=== PATIENT | female | born 1940 | race Caucasian/White ===

== ENCOUNTER 2017-08-14 09:56 | Inpatient (IN) | payer MEDICARE, OTHER ==
[2017-08-14] VITALS (18 sets, daily range): BP systolic 101–177; BP diastolic 54–74; PULSE 60–108; RESP 17–23; Ht 165.1 cm; Wt 75.0 kg
[~2017-08-14] VITALS: Ht 165.1 cm; Wt 75.0 kg
[~2017-08-14 09:56] MED LIST: GEMF600T PO; LISI-313 PO; METF500T4 PO
[2017-08-14] MEDS ORDERED: MONT10TA21 PO (11:38)
[2017-08-14] MEDS ORDERED: LISI10TA2 PO (11:38)
[2017-08-14] MEDS ORDERED: SOD CHLORIDE 0.9% 500 ML IV STA (11:44)
--- NOTE | 2017-08-14 11:47 | ERD ---
ER Documentation Chief Complaint Date/Time DATE: 08/14/17 TIME: 11:45 Chief Complaint Complains of lower quadrant pain HPI Patient is a 77-year-old female who presents with gradual onset, constant, moderate right lower quadrant abdominal pain for 8 days. She states that the pain is gradually improved since onset but is still moderate to severe in intensity. She reports one episode of vomiting. She denies constipation or diarrhea. She reports feeling chills, but denies fever. She denies back pain, dysuria, hematuria. She reports history of left-sided abdominal hernia. ROS All systems reviewed and are negative except as per history of present illness. Medications Home Meds Reported Medications Montelukast Sodium* (Singulair*) 10 Mg Tablet, 10 MG PO QHS, #30 TAB 08/14/17 Lisinopril* (Lisinopril*) 10 Mg Tablet, 10 MG PO DAILY, #30 TAB 08/14/17 Gemfibrozil* (Lopid*) 600 Mg Tablet, 600 MG PO bid 09/27/13 Metformin* (Glucophage*) 500 Mg Tab, 500 MG PO daily 09/27/13 Discontinued Reported Medications Lisinopril* (Lisinopril*) 5 Mg Tablet, 5 MG PO daily 09/27/13 Allergies Allergies: Coded Allergies: No Known Allergy (Unverified , 08/14/17) PMhx/Soc Past medical history: Diabetes mellitus, hernia Past surgical history: Cholecystectomy, hernia repair Social history: Denies tobacco, alcohol or illicit drugs History of Surgery: No Anesthesia Reaction: No Hx Neurological Disorder: No Hx Respiratory Disorders: No Hx Cardiac Disorders: No Hx Psychiatric Problems: No Hx Miscellaneous Medical Probl: No Hx Alcohol Use: No Hx Substance Use: No Hx Tobacco Use: No Smoking Status: Never smoker FmHx Noncontributory Physical Exam Vitals Vital Signs Date Time Temp Pulse Resp B/P Pulse Ox O2 Delivery O2 Flow Rate FiO2 08/14/17 16:11 68 20 111/63 99 Room Air 08/14/17 10:03 98.7 90 20 140/70 96 Physical Exam Const: Alert, appears mildly uncomfortable Head: Atraumatic Eyes: Normal Conjunctiva, No pallor, no icterus ENT: Normal External Ears, Nose and Mouth. Mucous membranes moist Neck: Full range of motion..~ No meningismus. Resp: Clear to auscultation bilaterally, No wheezes, no rales Cardio: Regular rate and rhythm, no murmurs Abd: Soft, Nondistended. Right lower quadrant tenderness with mild voluntary guarding, no rebound Skin: No petechiae or rashes Back: No midline or flank tenderness Ext: No cyanosis, or edema Neur: Awake and alert Psych: Normal Mood and Affect Result Diagram: 08/14/17 1145 08/14/17 1145 Results 24 hrs Laboratory Tests Test 08/14/17 11:45 White Blood Count 7.910^3/ul Red Blood Count 3.4410^6/ul Hemoglobin 11.5g/dl Hematocrit 33.6% Mean Corpuscular Volume 97.7fl Mean Corpuscular Hemoglobin 33.4pg Mean Corpuscular Hemoglobin Concent 34.2g/dl Red Cell Distribution Width 12.3% Platelet Count 29862^3/UL Mean Platelet Volume 10.5fl Neutrophils % 74.8% Lymphocytes % 14.3% Monocytes % 7.1% Eosinophils % 3.1% Basophils % 0.3% Nucleated Red Blood Cells % 0.0/100WBC Neutrophils # 5.910^3/ul Lymphocytes # 1.110^3/ul Monocytes # 0.610^3/ul Eosinophils # 0.210^3/ul Basophils # 0.010^3/ul Nucleated Red Blood Cells # 0.010^3/ul Prothrombin Time 14.8Sec Prothrombin Time Ratio 1.2 INR International Normalized Ratio 1.16 Urine Color YELLOW Urine Clarity SLIGHTLY CLOUDY Urine pH 5.0 Urine Specific [place] 1.021 Urine Ketones NEGATIVEmg/dL Urine Nitrite NEGATIVEmg/dL Urine Bilirubin NEGATIVEmg/dL Urine Urobilinogen NEGATIVEmg/dL Urine Leukocyte Esterase TRACELeu/ul Urine Microscopic RBC 0/HPF Urine Microscopic WBC 3/HPF Urine Hemoglobin NEGATIVEmg/dL Urine Glucose NEGATIVEmg/dL Urine Total Protein NEGATIVEmg/dl Sodium Level 140mmol/L Potassium Level 4.6mmol/L Chloride Level 107mmol/L Carbon Dioxide Level 24mmol/L Anion Gap 14 Blood Urea Nitrogen 28mg/dl Creatinine 0.87mg/dl Glucose Level 144mg/dl Calcium Level 9.6mg/dl Total Bilirubin 0.1mg/dl Direct Bilirubin 0.00mg/dl Indirect Bilirubin 0.1mg/dl Aspartate Amino Transf (AST/SGOT) 20IU/L Alanine Aminotransferase (ALT/SGPT) 29IU/L Alkaline Phosphatase 93IU/L Total Protein 8.2g/dl Albumin 4.2g/dl Globulin 4.00g/dl Albumin/Globulin Ratio 1.05 Lipase 130U/L Current Medications Medications (Trade) Dose Ordered Sig/Moira Route PRN Reason Start Time Stop Time Status Last Admin Dose Admin Sodium Chloride (NS) 500 ml @ 500 mls/hr Q1H STAT IV 08/14/17 11:44 08/14/17 12:43 DC 08/14/17 12:17 Morphine Sulfate (morphine) 2 mg ONCE STAT IV 08/14/17 11:44 08/14/17 11:46 DC Ondansetron HCl (Zofran Inj) 4 mg ONCE STAT IV 08/14/17 11:44 08/14/17 11:46 DC IV Flush 10 ml 10 ml STK-MED ONCE .ROUTE 08/14/17 12:35 08/14/17 12:36 DC Sodium Chloride (NS) 100 ml @ ud STK-MED ONCE .ROUTE 08/14/17 12:35 08/14/17 12:36 DC Iohexol 150 ml 150 ml STK-MED ONCE .ROUTE 08/14/17 12:35 08/14/17 12:36 DC Piperacillin Sod/ Tazobactam Sod 100 ml @ 200 mls/hr ONCE ONCE IVPB 08/14/17 13:30 08/14/17 13:59 DC 08/14/17 13:29 Sodium Chloride (NS) 500 ml @ 500 mls/hr Q1H ONCE IV 08/14/17 15:00 08/14/17 15:59 DC Ondansetron HCl (Zofran Inj) 4 mg BRIDGE ORDER PRN IV NAUSEA AND/OR VOMITING 08/14/17 15:30 08/15/17 15:29 Acetaminophen 650 mg 650 mg ER BRIDGE PRN PO MILD PAIN/FEVER 08/14/17 15:30 08/15/17 15:29 Dextrose/Sodium Chloride (D5-1/2ns) 1,000 ml @ 75 mls/hr [id number] IV 08/14/17 16:15 IV Flush (NS 3 ml) 3 ml PER PROTOCOL IV 08/14/17 16:30 Ondansetron HCl (Zofran Inj) 4 mg Q6H PRN IV NAUSEA AND/OR VOMITING 08/14/17 16:30 Hydromorphone HCl 0.5 mg 0.5 mg Q4H PRN IV SEVERE PAIN LEVEL 7-10 08/14/17 16:30 Ampicillin Sodium/ Sulbactam Sodium (Unasyn 3gm/NS (Pmx)) 100 ml @ 100 mls/hr Q6 IVPB 08/14/17 18:00 Procedures/MDM MDM: Patient is a 77-year-old female who presents with 8 days of right lower quadrant pain. She had tenderness with guarding on exam, so a CT scan was performed and shows evidence of acute appendicitis. There is no evidence of perforation or abscess. Patient has no leukocytosis or fever, and labs are otherwise unremarkable. The patient was made n.p.o., given IV fluids and antibiotics. Case was discussed with the surgeon on-call, and will be admitted to the hospitalist for further care. Departure Diagnosis: Primary Impression: Appendicitis Appendicitis type: acute appendicitis Acute appendicitis type: unspecified acute appendicitis type Qualified Code: K35.80 - Acute appendicitis, unspecified acute appendicitis type Condition: Stable CECILIA GAGNON MD Aug 14, 2017 11:47
[2017-08-14 12:11] LABS: BASOPHILS % 0.3 % (0.0-2.0); EOSINOPHILS # 0.2 10^3/ul (0.0-0.5); EOSINOPHILS % 3.1 % (0.0-7.0); HEMATOCRIT 33.6 % (37.0-47.0); HEMOGLOBIN 11.5 g/dl (12.0-16.0); LYMPHOCYTES # 1.1 10^3/ul (0.8-2.9); LYMPHOCYTES % 14.3 % (15.0-51.0); MEAN CORPUSCULAR HEMOGLOBIN 33.4 pg (29.0-33.0); MEAN CORPUSCULAR HGB CONC 34.2 g/dl (32.0-37.0); MEAN CORPUSCULAR VOLUME 97.7 fl (82.0-101.0); MEAN PLATELET VOLUME 10.5 fl (7.4-10.4); MONOCYTE # 0.6 10^3/ul (0.3-0.9); MONOCYTES % 7.1 % (0.0-11.0); NEUTROPHIL # 5.9 10^3/ul (1.6-7.5); NEUTROPHILS % 74.8 % (39.0-77.0); PLATELET COUNT 205 10^3/UL (140-415); RED BLOOD COUNT 3.44 10^6/ul (4.20-5.40); RED CELL DISTRIBUTION WIDTH 12.3 % (11.5-14.5); WHITE BLOOD COUNT 7.9 10^3/ul (4.8-10.8)
[2017-08-14 12:15] LABS: ADD UMIC YES; UR ASCORBIC ACID NEGATIVE (NEGATIVE); UR BILIRUBIN (Dip) NEGATIVE (NEGATIVE); UR BLOOD (Dip) NEGATIVE (NEGATIVE); UR CLARITY SLIGHTLY CLOUDY (CLEAR); UR COLOR YELLOW (YELLOW); UR GLUCOSE (Dip) NEGATIVE (NEGATIVE); UR KETONES (Dip) NEGATIVE (NEGATIVE); UR LEUKOCYTE ESTERASE (Dip) TRACE Leu/ul (NEGATIVE); UR NITRITE (Dip) NEGATIVE (NEGATIVE); UR RBC 0 /HPF (0-5); UR SPECIFIC GRAVITY (Dip) 1.021 (1.003-1.030); UR TOTAL PROTEIN (Dip) NEGATIVE (NEGATIVE); UR UROBILINOGEN (Dip) NEGATIVE (NEGATIVE)
[2017-08-14] MEDS: ONDANSETRON 4 MG INJ IV STA ×2 (12:16→12:21)
[2017-08-14] MEDS: morphine 2 MG INJ IV STA ×2 (12:16→12:20)
[2017-08-14 12:26] LABS: INR 1.16; PROTIME 14.8 Sec (12.2-14.2); PT RATIO 1.2
[2017-08-14 12:28] LABS: ALBUMIN 4.2 g/dl (3.3-4.9); ALBUMIN/GLOBULIN RATIO 1.05; BILIRUBIN,INDIRECT 0.1 mg/dl (0-1.1); BILIRUBIN,TOTAL 0.1 mg/dl (0.2-1.3); CALCIUM 9.6 mg/dl (8.4-10.2); CREATININE 0.87 mg/dl (0.44-1.00); POTASSIUM 4.6 mmol/L (3.5-5.1); TOTAL PROTEIN 8.2 g/dl (6.1-8.1)
[2017-08-14] MEDS ORDERED: IOHEXOL 300MG/ML 150 ML BTL ONE (12:35)
[2017-08-14] MEDS ORDERED: SOD CHLORIDE 0.9% 100 ML ONE (12:35)
--- NOTE | 2017-08-14 13:09 | RADRPT ---
PROCEDURE: CT Abdomen and Pelvis with contrast. CLINICAL INDICATION: Abdominal pain. TECHNIQUE: CT scan of the abdomen and pelvis with and without contrast was performed on a multidet jude high-resolution CT scanner. The patient was scanned following the uncomplicated intravenous a dministration of 100 cc of Omnipaque 300. Coronal and sagittal reformatted images were obtained fro m the axial source images. Images were reviewed on a high-resolution PACS workstation. The followin g dose reduction techniques were used: Automated exposure control, adjustment of the mA and/or kV ac cording to patient size and use of iterative reconstruction technique. The total exam CTDI equals 19 .9 mGy and the total exam DLP equals 1134 mGy-cm. COMPARISON: None. FINDINGS: CT abdomen: The lung bases are clear. The heart size is normal. No pericardial effusion identified. The liver demonstrates normal size and density. No liver mass identified. The gallbladder surgically absent. There is no intrahepatic or extrahepatic biliary dilatation. The spleen is normal in size. No focal splenic abnormality identified. No gross abnormality of the stomach is identified. The pancreas is unremarkable. The adrenal glands appear normal. Moderate hydronephrosis of the left kidney. Mild hydronephrosis of the right kidney. No evidence of hydroureter or renal calculi. The kidneys are unremarkable. There is no evidence of renal mass, renal calculi or hydronephrosis. The aorta is of normal caliber. Aortic vascular calcifications are present. No adenopathy identified. The appendix is dilated, measuring 11 mm. There is inflammatory change around the course the appendix, suggest appendicitis. Mild diverticulos is is seen in the ascending transverse and descending colon. There is a small, wide neck ventral hernia vision 2.[address] pelvis: The pelvic organs are normal. The pelvic sidewalls and inguinal regions are clear. The sigmoid colon and rectum are remarkable for moderate sigmoid diverticulosis. No adenopathy, free fluid or inflammatory change identified. The osseous structures are remarkable for degenerative spondylosis of the spine. No osteolytic or osteoblastic lesion is detected. IMPRESSION: 1. Appendiceal dilation with periappendiceal inflammatory change. Findings are consistent with appe ndicitis. No CT evidence of abscess or perforation. 2. Mild right and moderate left hydronephrosis without ureteric calculi or hydroureter findings may indicate UPJ stenosis. 3. Small, wide neck midline ventral hernia measuring 2.7 cm containing a loop of small bowel withou t evidence of bowel obstruction. 4. Moderate diverticulosis of sigmoid colon, without inflammatory change to suggest diverticulitis. Findings discussed with Dr. Vee on 08/14/2017 at 1305 hours. RPTAT: QQ .Dre Fairchild MD, Date Time Electronically viewed and signed by .Dre Fairchild MD, on 08/14/2017 13:09 .M/
[2017-08-14] MEDS ORDERED: PIPER-TAZO 3.375 GM IV (PMX) 100 ML IVPB ONE (13:30)
[2017-08-14] MEDS ORDERED: SOD CHLORIDE 0.9% 500 ML IV ONE (15:00)
[2017-08-14] MEDS ORDERED: ONDANSETRON 4 MG INJ IV PRN ×4 (15:30→21:00)
[2017-08-14] MEDS ORDERED: ACETAMINOPHEN 325 MG TAB PO PRN (15:30)
--- NOTE | 2017-08-14 15:51 | CONS ---
Date/Time of Note Date/Time of Note DATE: 08/14/17 TIME: 15:39 Assessment/Plan Assessment/Plan Chief Complaint/Hosp Course 1. Appendicitis without appendicolith per radiologist -patient opting for surgery- r/b/a of lap appendectomy reviewed with patient and family -abx -npo -pain management 2. Abdominal pain -RLQ -as above, pain management 3. Ventral hernia; no pain -eventual hernia repair -weight loss -close monitoring 4. Diverticulosis without diverticulitis -medical management and outpatient followup 5. Anemia: no acute bleed noted -monitor and transfuse as needed Thank you. Patient seen and examined in collaboration with Dr. Micha Foster. Problems: Consultation Date/Type/Reason Admit Date/Time Date of Consultation: Aug 14, 2017 Reason for Consultation appendicitis Referring Provider: CECILIA GAGNON MD Hx of Present Illness Brittani Portillo is a 77 yo woman who presents to the ED with an 8 day history of abdominal pain centralized in the right lower quadrant. Pain is described as squeezing and strong, nonradiating. Associated symptoms includes chills but no fevers. No noted interventions attempted. She has significant history of constipation. She denies nausea, vomiting, cp, palpitations, dysuria or hematuria. CT abdomen shows appendiceal dilation with periappendiceal inflammatory change. General surgery was asked to evaluate. Constitutional: chills, No diaphoresis, No febrile Eyes: No visual change ENT: No congestion, No pain Respiratory: No cough, No shortness of breath Cardiovascular: No edema, No lightheadedness Gastrointestinal: constipation Genitourinary: No dysuria, No hematuria Musculoskeletal: No bone/joint pain Skin: No bruising, No erythema, No rash Neurologic: No headache Psychological: No anxiety Past Medical History hypertension diabetes (controlled) asthma Past Surgical History umbilical hernia repair cholecystecomy Family History Significant Family History: no pertinent family hx Social History Alcohol Use: none Smoking Status: Never smoker Drug Use: none Exam/Review of Systems Vital Signs Vitals Vital Signs Date Time Temp Pulse Resp B/P Pulse Ox O2 Delivery O2 Flow Rate FiO2 08/14/17 10:03 98.7 90 20 140/70 96 Exam Constitutional: alert, oriented, well developed Psych: nl mood/affect Head: atraumatic, normocephalic Eyes: nl lids, nl sclera ENMT: mucosa pink and moist, nl nasal mucosa & septum Neck: non-tender, supple Respiratory: normal air movement Cardiovascular: nl pulses, regular rate and rhythm Gastrointestinal: distended (mod), rebound or guarding, surgical scars, tender (rlq) Musculoskeletal: nl gait and stance Extremities: normal pulses Neurological: nl mental status, nl speech, nl strength Skin: No rash or lesions Results Result Diagram: 08/14/17 1145 08/14/17 1145 Results 24 hrs Laboratory Tests Test 08/14/17 11:45 White Blood Count 7.9 Red Blood Count 3.44 L Hemoglobin 11.5 L Hematocrit 33.6 L Mean Corpuscular Volume 97.7 Mean Corpuscular Hemoglobin 33.4 H Mean Corpuscular Hemoglobin Concent 34.2 Red Cell Distribution Width 12.3 Platelet Count 205 Mean Platelet Volume 10.5 H Neutrophils % 74.8 Lymphocytes % 14.3 L Monocytes % 7.1 Eosinophils % 3.1 Basophils % 0.3 Nucleated Red Blood Cells % 0.0 Neutrophils # 5.9 Lymphocytes # 1.1 Monocytes # 0.6 Eosinophils # 0.2 Basophils # 0.0 Nucleated Red Blood Cells # 0.0 Prothrombin Time 14.8 H Prothrombin Time Ratio 1.2 INR International Normalized Ratio 1.16 Urine Color YELLOW Urine Clarity SLIGHTLY CLOUDY A Urine pH 5.0 Urine Specific [place] 1.021 Urine Ketones NEGATIVE Urine Nitrite NEGATIVE Urine Bilirubin NEGATIVE Urine Urobilinogen NEGATIVE Urine Leukocyte Esterase TRACE A Urine Microscopic RBC 0 Urine Microscopic WBC 3 Urine Hemoglobin NEGATIVE Urine Glucose NEGATIVE Urine Total Protein NEGATIVE Sodium Level 140 Potassium Level 4.6 Chloride Level 107 Carbon Dioxide Level 24 Anion Gap 14 Blood Urea Nitrogen 28 H Creatinine 0.87 Glucose Level 144 Calcium Level 9.6 Total Bilirubin 0.1 L Direct Bilirubin 0.00 Indirect Bilirubin 0.1 Aspartate Amino Transf (AST/SGOT) 20 Alanine Aminotransferase (ALT/SGPT) 29 Alkaline Phosphatase 93 Total Protein 8.2 H Albumin 4.2 Globulin 4.00 H Albumin/Globulin Ratio 1.05 Lipase 130 Medications Medications Current Medications Sodium Chloride (NS) 500 ml @ 500 mls/hr Q1H ONCE IV ; Start 08/14/17 at 15:00 ; Stop 08/14/17 at 15:59 RUBIA ROQUE NP Aug 14, 2017 15:51
[2017-08-14] MEDS ORDERED: NACL 0.9% 3 ML SYG IV SCH (16:30)
--- NOTE | 2017-08-14 17:27 | HP ---
Date/Time of Note Date/Time of Note DATE: 08/14/17 TIME: 17:23 Assessment/Plan VTE Prophylaxis VTE Prophylaxis Intervention: SCD's Assessment/Plan Chief Complaint/Hosp Course 77 yo female with no significant PMH who presents with appendicitis - Plan for OR per Dr Foster - Will keep on Unasyn until OR - IVF maintenance - SCDs - Patient is medically cleared for OR Problems: HPI/ROS Admit Date/Time Admit Date/Time Hx of Present Illness 77 yo female withotu significant PMH who presents with 8 days of crampy abdominal pain Still taking PO, normal BM habits. No systemic fevers, etc. In ED, found to have appendicitis. Abx started. Seen by surgery, planning to go to OR. Currently comfortable ROS Eyes: No visual change ENT: No congestion, No pain Respiratory: No cough, No shortness of breath Cardiovascular: No edema, No lightheadedness Gastrointestinal: constipation Genitourinary: No dysuria, No hematuria Musculoskeletal: No bone/joint pain Skin: No bruising, No erythema, No rash Neurologic: No headache Psychological: nl mood/affect PMH/Family/Social Past Medical History Medical History: no pertinent history Family History Significant Family History: no pertinent family hx Social History Alcohol Use: none Smoking Status: Never smoker Drug Use: none Exam/Review of Systems Vital Signs Vitals Vital Signs Date Time Temp Pulse Resp B/P Pulse Ox O2 Delivery O2 Flow Rate FiO2 08/14/17 16:11 68 20 111/63 99 Room Air 08/14/17 10:03 98.7 Exam Exam Abdomen soft, mildly tender to palpation in RLQ with mild rebound Nontoxic apperance, comfortable, pleasant Constitutional: alert, oriented, well developed Psych: nl mood/affect, no complaints Head: atraumatic, normocephalic Eyes: EOMI, PERRL, nl conjunctiva, nl lids, nl sclera ENMT: nl external ears & nose, nl lips & teeth, nl nasal mucosa & septum Neck: non-tender, supple Respiratory: clear to auscultation, normal air movement Cardiovascular: nl pulses, regular rate and rhythm Gastrointestinal: nl liver, spleen, non-tender, soft Musculoskeletal: nl extremities to inspection Extremities: normal pulses Neurological: DISTRIBUTION ASSOCIATE II-XII intact, nl mental status, nl speech, nl strength Skin: nl turgor, No rash or lesions Lymph: nl lymph nodes Labs Result Diagram: 08/14/17 1145 08/14/17 1145 Medications Medications Current Medications Dextrose/Sodium Chloride (D5-1/2ns) 1,000 ml @ 75 mls/hr [id number] IV ; Start at 16:15 Ondansetron HCl (Zofran Inj) 4 mg Q6H PRN IV NAUSEA AND/OR VOMITING; Start 08/14/17 at 16:30 Hydromorphone HCl 0.5 mg 0.5 mg Q4H PRN IV SEVERE PAIN LEVEL 7-10; Start at 16:30 Ampicillin Sodium/ Sulbactam Sodium (Unasyn 3gm/NS (Pmx)) 100 ml @ 100 mls/hr Q6 IVPB ; Start 08/14/17 at 18:00 CECILIA GALEAS MD Aug 14, 2017 17:27
[2017-08-14] MEDS ORDERED: FENTAnyl 50 MCG/ML VIAL ONE (18:53)
[2017-08-14] MEDS ORDERED: SUCCINYLCHOLINE CHLORIDE 100 MG/5 ML SYG IV ONE (18:53)
[2017-08-14] MEDS ORDERED: PROPOFOL 20 ML ONE (18:53)
[2017-08-14] MEDS ORDERED: LIDOCAINE 2% (SDV) 5 ML INJ ONE (18:53)
[2017-08-14] MEDS ORDERED: EPHEDrine SULFATE 50 MG/5 ML SYG IV PRN (19:00)
[2017-08-14] MEDS ORDERED: LEVALBUTEROL (NEB) 1.25 MG/0.5 ML AMP HHN PRN (19:00)
[2017-08-14] MEDS ORDERED: HYDROmorphONE (0.2 MG/ML) 10ML SYG IV PRN (19:00)
[2017-08-14] MEDS ORDERED: DIPHENHYDRAMINE 50 MG INJ IV PRN (19:00)
[2017-08-14] MEDS ORDERED: hydrALAzine 20 MG INJ IV PRN (19:00)
[2017-08-14] MEDS ORDERED: FENTAnyl 50 MCG/ML VIAL IV PRN (19:00)
[2017-08-14] MEDS ORDERED: PROCHLORPERAZINE 10 MG INJ IV PRN (19:00)
[2017-08-14] MEDS ORDERED: MEPERIDINE 25 MG INJ IV PRN (19:00)
[2017-08-14] MEDS ORDERED: LIDOCAINE 1% (MPF) 30 ML INJ ONE (19:18)
[2017-08-14] MEDS ORDERED: BUPIVACAINE 0.25% (MPF) 30 ML INJ ONE (19:19)
--- NOTE | 2017-08-14 19:43 | RADRPT ---
PROCEDURE: XR Chest. CLINICAL INDICATION: Preop TECHNIQUE: Anterior chest x-ray. COMPARISON: 03/25/2014 FINDINGS: Exam is limited due to lordotic positioning. Lung bases are not clearly visualized. No significant a bnormality identified on lung bases on the CT scan performed earlier the same day. The upper lung zones are clear. No pleural effusion identified. There is no evidence of pneumothorax. Is atherosclerotic calcification of the aorta. The cardiomediastinal silhouette is unremarkable. The soft tissues are normal. Osseous structures are unremarkable. IMPRESSION: 1. No acute disease is seen in the chest, with limitation due to lordotic positioning. RPTAT: QQ .Dre Fairchild MD, Date Time Electronically viewed and signed by .Dre Fairchild MD, on 08/14/2017 19:42 .M/
[2017-08-14] MEDS: AMPICILLIN/SULB 3 GM/NS (PMX) 100 ML IVPB SCH (19:53)
[2017-08-14] MEDS ORDERED: ONDANSETRON 4 MG INJ ONE (20:00)
[2017-08-14] MEDS ORDERED: ROCURONIUM 50 MG INJ ONE (20:00)
[2017-08-14] MEDS ORDERED: CEFAZOLIN 1 GM INJ ONE (20:00)
[2017-08-14] MEDS ORDERED: METOCLOPRAMIDE 10 MG INJ ONE (20:00)
[2017-08-14] MEDS ORDERED: EPHEDrine SULFATE 50 MG/5 ML SYG ONE (20:01)
[2017-08-14] MEDS ORDERED: BUPIVACAINE 0.5%/EPI (SDV) 30 ML INJ ONE (20:14)
[2017-08-14] MEDS ORDERED: SUGAMMADEX SODIUM 200 MG/2 ML VIAL IV ONE (20:23)
[2017-08-14] MEDS ORDERED: ACETAMINOPHEN 1000MG/100ML IV 100 ML ONE (20:45)
--- NOTE | 2017-08-14 21:07 | OPR ---
Date/Time of Note Date/Time of Note DATE: 08/14/17 TIME: 21:01 Operative Report Procedure Date: Aug 14, 2017 Preoperative Diagnosis . Postoperative Diagnosis . Operation/Procedure Performed . 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 Anesthesia Type: other (.) Estimated Blood Loss: 10 - 50 ml's Transfusion none Specimen . Grafts/Implants none Complications none Procedure Description Preoperative Diagnosis 1. Acute appendicitis 2. Central obesity Postoperative Diagnosis 1. Acute appendicitis 2. Central obesity 3. Multiple lower ventral incisional hernias Operation Performed 1. Laparoscopic appendectomy 2. [place] anesthetic [place], [id number] 3. Laparoscopic guided bilateral transversus abdominis plane block Surgeon: DINH LEWIS MD Anesthesia: general (Plus local plus regional) Anesthesiologist: Santiago HINES Estimated Blood Loss: 15 ml's Specimens: Appendix Tubes/Drains None Complications: None Pt Condition Post Procedure: stable Disposition: PACU Indications: Per consult note. Risks include but are not limited to bleeding, infection, abscess, seroma, leak , damage to intestines or any intra-abdominal/intrapelvic structures, hernia formation, chronic pain, need for re-operations or further surgeries, AK, stroke , PE, DVT, pneumonia, organ failures, or even . Procedure Note: Patient was brought into the operating room, placed supine on the operating table, SCDs were placed, left arm was tucked, all pressure points were well- padded, preoperative antibiotics administered, and after induction of anesthesia , she was prepped and draped in usual sterile fashion, and timeout was performed. Incision was made in the right upper quadrant and using 5 mm 0 scope and a 5 mm Optiview port abdomen was safely entered and insufflated to 15 mmHg with CO2. Laparoscopy was performed and no injuries were identified using a 5 mm 30 scope. Under direct visualization another 5 mm port was placed and left lower quadrant and 12 mm port in the luq as well. Multiple [place] cheese type ventral incisional hernias were identified. All incision sites were injected with quarter percent Marcaine with 1% lidocaine with epi. Bilateral transversus abdominis plane block was performed under laparoscopic visualization to aid with pain control intra-and postoperatively. Patient was placed in Trendelenburg and right side up. The appendix was found to be minimally inflamed. The base was transected using [employer] SOFIA white load automatic 35 mm stapler just on the cecum. The ambar were fired fully. The mesoappendix was transected with another white load stapler. Hemostasis was fully obtained. The appendix was placed in an Endo Catch bag and removed through the suprapubic port site. That fascia was closed with Endo Close and 0 Vicryl in a [id number] manner avoiding the bladder. Ports and CO2 were removed under direct visualization, wounds were fully irrigated, and skin was closed in subcuticular fashion using 4-0 Monocryl. Dermabond was applied. All counts were correct and the end of the operation 2. Patient was extubated and transferred to recovery room in stable condition. DINH LEWIS MD Aug 14, 2017 21:07
[2017-08-14] MEDS: LABETALOL HCL 20MG INJ IV PRN ×2 (21:15→21:33)
[2017-08-14] MEDS: DEXTROSE 5%-0.45% NACL 1,000 ML IV SCH (22:16)
[2017-08-15] VITALS (7 sets, daily range): BP systolic 100–132; BP diastolic 54–60; RESP 18
[2017-08-15] MEDS: AMPICILLIN/SULB 3 GM/NS (PMX) 100 ML IVPB SCH ×4 (01:17→18:00)
[2017-08-15] MEDS: HYDROmorphONE 1 MG/ML SYG IV PRN ×3 (02:45→11:20)
[2017-08-15 05:09] LABS: BASOPHILS % 0.1 % (0.0-2.0); EOSINOPHILS # 0.1 10^3/ul (0.0-0.5); HEMATOCRIT 31.4 % (37.0-47.0); HEMOGLOBIN 10.4 g/dl (12.0-16.0); LYMPHOCYTES # 0.9 10^3/ul (0.8-2.9); LYMPHOCYTES % 13.3 % (15.0-51.0); MEAN CORPUSCULAR HGB CONC 33.1 g/dl (32.0-37.0); MEAN CORPUSCULAR VOLUME 96.6 fl (82.0-101.0); MEAN PLATELET VOLUME 10.3 fl (7.4-10.4); MONOCYTE # 0.6 10^3/ul (0.3-0.9); MONOCYTES % 9.2 % (0.0-11.0); NEUTROPHIL # 5.1 10^3/ul (1.6-7.5); NEUTROPHILS % 76.1 % (39.0-77.0); PLATELET COUNT 226 10^3/UL (140-415); RED BLOOD COUNT 3.25 10^6/ul (4.20-5.40); RED CELL DISTRIBUTION WIDTH 12.5 % (11.5-14.5); WHITE BLOOD COUNT 6.8 10^3/ul (4.8-10.8)
[2017-08-15 05:15] LABS: ALBUMIN 3.6 g/dl (3.3-4.9); ALBUMIN/GLOBULIN RATIO 1.05; BILIRUBIN,INDIRECT 0.1 mg/dl (0-1.1); BILIRUBIN,TOTAL 0.1 mg/dl (0.2-1.3); CALCIUM 9.1 mg/dl (8.4-10.2); CREATININE 0.86 mg/dl (0.44-1.00); POTASSIUM 4.1 mmol/L (3.5-5.1)
[2017-08-15] MEDS: DEXTROSE 5%-0.45% NACL 1,000 ML IV SCH ×2 (05:19→16:18)
--- NOTE | 2017-08-15 14:05 | PN ---
Date/Time of Note Date/Time of Note DATE: 08/15/17 TIME: 13:50 Assessment/Plan Lines/Catheters IV Catheter Type (from [facility]): Peripheral IV Ortega in Place (from [facility]): No Assessment/Plan Chief Complaint/Hosp Course 1. Appendicitis without appendicolith per radiologist; s/p lap appendectomy; tolerating clears -pain management -ambulate -IS -advance diet as tolerated -ice pack to abdominal wall -may discharge per medical team once tolerating diet and passing gas; to follow in office in 1-2 weeks 2. Abdominal pain -RLQ; improved -as above, pain management 3. Ventral hernia; no pain -eventual hernia repair -weight loss -close monitoring 4. Diverticulosis without diverticulitis -medical management and outpatient followup 5. Anemia: no acute bleed noted -monitor and transfuse as needed Thank you. Patient seen and examined in collaboration with Dr. Micha Foster. Problems: Subjective 24 Hr Interval Summary S/p lap appendectomy yesterday. Abdominal tenderness but no acute pain. No drainage or bruising from incision sites. No fevers, chills, sob, congested cough, n/v/d/dysuria. Exam/Review of Systems Vital Signs Vitals Vital Signs Date Time Temp Pulse Resp B/P Pulse Ox O2 Delivery O2 Flow Rate FiO2 08/15/17 07:45 99.2 87 18 116/55 90 08/14/17 21:45 Room Air Intake and Output 08/14/17 08/14/17 08/15/17 15:00 23:00 07:00 Intake Total 1000 ml 625 ml Output Total 15 ml Balance 985 ml 625 ml Exam Free Text/Dictation Constitutional: alert, oriented, well developed Psych: nl mood/affect Head: atraumatic, normocephalic Eyes: nl lids, nl sclera ENMT: mucosa pink and moist, nl nasal mucosa & septum Neck: non-tender, supple Respiratory: normal air movement Cardiovascular: nl pulses, regular rate and rhythm Gastrointestinal: non distended, min tender (rlq), incisions dry without drainage/bruising Musculoskeletal: nl gait and stance Extremities: normal pulses Neurological: nl mental status, nl speech, nl strength Skin: No rash or lesions Results Result Diagram: 08/15/17 0432 08/15/17 043 RUBIA ROQUE NP Aug 15, 2017 14:04
[2017-08-15] MEDS ORDERED: HYDR-906 PO (15:39)
--- NOTE | 2017-08-15 15:41 | PDOCDIS ---
Discharge Instructions CONDITION Patient Condition: Good HOME CARE INSTRUCTIONS: Diet Instructions: Regular ACTIVITY: Activity Restrictions: Slowly Increase Activity FOLLOW UP/APPOINTMENTS Follow-up Plan Follow-up with your PCP in 1-2 weeks, follow with Dr. Micha Foster of surgery in 1-2 weeks please call for an appointment RAYMOND PARRISH Aug 15, 2017 15:41
--- NOTE | 2017-08-15 15:44 | DS ---
Date/Time of Note Date/Time of Note DATE: 08/15/17 TIME: 15:41 Discharge Summary Admission/Discharge Info Admit Date/Time Aug 14, 2017 at 15:04 Discharge Date/Time August 15, 2017 Discharge Diagnosis 1. Appendicitis without appendicolith per radiologist; s/p lap appendectomy 2. Ventral hernia; no pain -eventual hernia repair -weight loss -close monitoring 3. Diverticulosis without diverticulitis 4. Mild anemia: no acute bleed noted Patient Condition: Good Hospital Course Patient is a 77 yo female with no significant PMH who presents with 8 days of crampy abdominal pain, found to have acute appendicitis and taken to the OR for laparoscopic appendectomy. Patient was doing well postoperatively, was tolerating a p.o. diet. On day of discharge patient vitals, labs and physical exam were stable, had no acute complaints and questions are answered. Patient was cleared for DC per surgery. Home Meds Active Scripts Hydrocodone/Acetaminophen ([place] 5-325 Tablet) 1 Each Tablet, 1 EACH PO Q4 for PAIN, #40 TAB Prov:RAYMOND PARRISH 08/15/17 Reported Medications Lisinopril* (Lisinopril*) 10 Mg Tablet, 10 MG PO DAILY, #30 TAB 08/14/17 Gemfibrozil* (Lopid*) 600 Mg Tablet, 600 MG PO bid 09/27/13 Discontinued Reported Medications Montelukast Sodium* (Singulair*) 10 Mg Tablet, 10 MG PO QHS, #30 TAB 08/14/17 Metformin* (Glucophage*) 500 Mg Tab, 500 MG PO daily 09/27/13 Lisinopril* (Lisinopril*) 5 Mg Tablet, 5 MG PO daily 09/27/13 Follow-up Plan Follow-up with your PCP in 1-2 weeks, follow with Dr. Micha Foster of surgery in 1-2 weeks please call for an appointment Primary Care Provider Benito Rico Time spent on discharge: > 30 minutes RAYMOND PARRISH Aug 15, 2017 15:44
[2017-08-16] MEDS ORDERED: INFLUENZA VIRUS VACCINE 0.5 ML SYG IM* ONE (09:00)
--- NOTE | 2017-08-19 15:53 | RADRPT ---
Vent Rate: 82 bpm RR Interval: 0 msec LA Interval: 140 msec QRS Duration: 82 msec QT Interval: 336 msec QTC Interval: 392 msec P-R-T Superior: 50 - 22 - 13 degrees Normal sinus rhythm Normal ECG Electronically Signed By: Alex Sullivan [id number]
== END 2017-08-15 20:05 | disposition home or self-care (01) | DRG 343 ==
LOC: E/R 09:56 → MS2 15:04
PROVIDERS: ADMIT Internal Medicine; ATTEND Internal Medicine
PROC: 0DTJ4ZZ Resection of Appendix, Percutaneous Endoscopic Approach (ICD-10-PCS; principal; 2017-08-14 19:15)
DX: K35.80 Unspecified acute appendicitis (principal); D64.9 Anemia, unspecified; E11.9 Type 2 diabetes mellitus without complications; I10 Essential (primary) hypertension; E78.5 Hyperlipidemia, unspecified; K43.9 Ventral hernia without obstruction or gangrene; K57.90 Diverticulosis of intestine, part unspecified, without perforation or abscess without bleeding; E66.9 Obesity, unspecified; Z68.27 Body mass index [BMI] 27.0-27.9, adult; K21.9 Gastro-esophageal reflux disease without esophagitis; J45.909 Unspecified asthma, uncomplicated
CPT/HCPCS: 36415; 71010; 74177; 80053; 81001; 83605; 83690; 85025; 85610; 88304; 93005; 96361; 96365; 96366; J0131; J0295; J0360; J0690; J1170; J2270; J2405; J2543; J2765; J3010; J7040; J7042; J7999; Q9967

== ENCOUNTER 2018-03-15 09:34 | Emergency (ER) | END 2018-03-15 10:55 | disposition home or self-care (01) ==

== ENCOUNTER 2018-10-16 10:53 | Emergency (ER) | END 2018-10-16 12:38 | disposition home or self-care (01) ==